=== PATIENT | male | born 1935 | race Caucasian/White ===

== ENCOUNTER → 2016-07-17 | Outpatient (CLI) | payer MEDICARE, BC ==
--- NOTE | 2016-07-17 10:01 | REP ---
Chest two views HISTORY: Cough Comparison: None A 7 mm parenchymal density is present in the left lower lobe. The right lung is clear. The heart is normal in size. The pulmonary vasculature is normal in appearance. The bony structure is intact. IMPRESSION: There is a 7 mm parenchymal density in the left lower lobe. This most likely represents a granuloma. CT of the chest is recommended for further evaluation. Signed by Zeferino Freeman MD 07/17/2016 09:53 A
== END ==
LOC: M WUC 09:05
PROVIDERS: ATTEND Physician Assistant
DX: R91.8 Other nonspecific abnormal finding of lung field (principal)

== ENCOUNTER → 2016-07-19 | Outpatient (CLI) | payer MEDICARE ==
--- NOTE | 2016-07-19 10:28 | REP ---
CT CHEST WITHOUT IV CONTRAST: CT chest is performed without IV contrast. Correlation is made with chest radiograph 07/17/2016. No suspicious nodular opacities are seen in either lung. There are mild scattered interstitial fibrotic changes as well as mild scattered pleural thickening. No infiltrates are seen. The heart is not enlarged. There is no pleural or pericardial effusion. There is no evidence of mediastinal or hilar adenopathy. Coronary artery calcifications are present. Mild atherosclerotic calcifications are seen of the thoracic aorta without aneurysm. Visualized upper abdominal structures are grossly unremarkable. There are degenerative changes of the spine. IMPRESSION: Chronic fibrotic changes as discussed in detail above. No suspicious nodular opacity in either lung. No evidence for adenopathy. Signed by Lopez Trammell MD 07/19/2016 01:39 P
== END ==
LOC: M RAD 08:18
PROVIDERS: ATTEND Physician Assistant
DX: R05 Cough (principal); R91.8 Other nonspecific abnormal finding of lung field

== ENCOUNTER → 2018-12-02 | Outpatient (CLI) | payer MEDICARE ==
--- NOTE | 2018-12-02 09:05 | REP ---
Two-view chest: 12/02/2018. Indication: Cough. Comparison: 07/17/2016. Findings: No significant pleural fluid or pneumothorax are present. The cardiac silhouette to mediastinum are unremarkable. No significant air space disease is present within the lungs. Impression: Clear lungs. No acute disease. Electronically Signed by Rogers Matias DO 12/02/2018 08:57 A
== END ==
LOC: M WUC 08:43
PROVIDERS: ATTEND Physician Assistant
DX: J20.9 Acute bronchitis, unspecified (principal); R05 Cough